=== PATIENT | female | born 1960 | race Caucasian/White ===

== ENCOUNTER 2017-12-09 08:45 | Outpatient (REF) | payer MEDICARE, SELFPAY ==
[2017-12-11 10:24] LABS: CA 125 17 U/mL (0-30)
== END 2017-12-09 09:05 ==
LOC: LBN 08:45
PROVIDERS: PCP Nurse Practitioner Family; Visit Provider Behavior Technician
DX: R19.00 Intra-abdominal and pelvic swelling, mass and lump, unspecified site (principal); D39.11 Neoplasm of uncertain behavior of right ovary
CPT/HCPCS: 86304

== ENCOUNTER 2017-12-14 10:16 | Outpatient (REF) | payer MEDICARE, SELFPAY ==
[2017-12-14 21:42] LABS: HCT 39.3 % (36.0-46.0); HGB 13.6 g/dL (12.0-15.5); Mean Corp. HGB Concentration 34.6 g/dL (32.0-36.0); Mean Corpuscular Hemoglobin 28.8 pg (27.0-33.0); Mean Corpuscular Volume 83.3 fL (80-95); Mean Platelet Volume 11.5 fL (8.0-11.0); Platelet Count 174 x1000/uL (130-400); RBC 4.72 m/cumm (4.00-5.20); RBC Distribution Width 15.1 % (11.7-14.6); White Blood Cell Count 6.07 k/cumm (4.4-10.8)
[2017-12-16 12:46] LABS: Source: Ureter
== END 2017-12-14 10:36 ==
LOC: NCHCN 10:16
PROVIDERS: PCP Nurse Practitioner Family; Visit Provider Nurse Practitioner Family
DX: D50.9 Iron deficiency anemia, unspecified (principal); N20.1 Calculus of ureter
CPT/HCPCS: 85027; 82360

== ENCOUNTER 2018-01-13 08:47 | Outpatient (REF) | payer MEDICARE, SELFPAY ==
[2018-01-15 14:31] LABS: CA 125 13 U/mL (0-30)
== END 2018-01-13 09:07 ==
LOC: LBN 08:47
PROVIDERS: PCP Nurse Practitioner Family; Visit Provider Behavior Technician
DX: R19.00 Intra-abdominal and pelvic swelling, mass and lump, unspecified site (principal)
CPT/HCPCS: 86304

== ENCOUNTER 2018-02-12 12:57 | Outpatient (REF) | payer MEDICARE, SELFPAY ==
[2018-02-12 22:13] LABS: HCT 43.5 % (36.0-46.0); HGB 14.5 g/dL (12.0-15.5); Mean Corp. HGB Concentration 33.3 g/dL (32.0-36.0); Mean Corpuscular Volume 89.9 fL (80-95); Mean Platelet Volume 11.5 fL (8.0-11.0); Platelet Count 205 x1000/uL (130-400); RBC 4.84 m/cumm (4.00-5.20); RBC Distribution Width 13.8 % (11.7-14.6); White Blood Cell Count 7.26 k/cumm (4.4-10.8)
[2018-02-15 10:45] LABS: CA 125 15 U/mL (0-30)
== END 2018-02-12 13:17 ==
LOC: LBN 12:57
PROVIDERS: Nurse Practitioner Family; PCP Nurse Practitioner Family; Visit Provider Obstetrics & Gynecology
DX: D39.12 Neoplasm of uncertain behavior of left ovary (principal); R97.1 Elevated cancer antigen 125 [CA 125]; D50.9 Iron deficiency anemia, unspecified
CPT/HCPCS: 85027; 86304

== ENCOUNTER 2018-03-15 08:21 | Outpatient (REF) | payer MEDICARE, SELFPAY ==
[2018-03-18 12:52] LABS: CA 125 15 U/mL (0-30)
== END 2018-03-15 08:41 ==
LOC: LBN 08:21
PROVIDERS: PCP Nurse Practitioner Family; Visit Provider Behavior Technician
DX: D39.11 Neoplasm of uncertain behavior of right ovary (principal); R19.00 Intra-abdominal and pelvic swelling, mass and lump, unspecified site
CPT/HCPCS: 86304

== ENCOUNTER 2018-06-14 07:56 | Outpatient (REF) | payer MEDICARE, SELFPAY ==
[2018-06-16 11:26] LABS: CA 125 13 U/mL (0-30)
== END 2018-06-14 08:16 ==
LOC: LBN 07:56
PROVIDERS: PCP Nurse Practitioner Family; Visit Provider Behavior Technician
DX: D39.11 Neoplasm of uncertain behavior of right ovary (principal); R19.00 Intra-abdominal and pelvic swelling, mass and lump, unspecified site
CPT/HCPCS: 86304

== ENCOUNTER 2018-07-14 08:07 | Outpatient (REF) | payer MEDICARE, SELFPAY ==
[2018-07-16 10:11] LABS: CA 125 12 U/mL (0-30)
== END 2018-07-14 08:27 ==
LOC: LBN 08:07
PROVIDERS: PCP Nurse Practitioner Family; Visit Provider Behavior Technician
DX: D39.11 Neoplasm of uncertain behavior of right ovary (principal); R19.00 Intra-abdominal and pelvic swelling, mass and lump, unspecified site
CPT/HCPCS: 86304

== ENCOUNTER 2018-08-13 10:33 | Outpatient (REF) | payer MEDICARE, SELFPAY ==
[2018-08-16 10:47] LABS: CA 125 16 U/mL (0-30)
== END 2018-08-13 10:53 ==
LOC: LBN 10:33
PROVIDERS: PCP Nurse Practitioner Family; Referring Provider Behavior Technician; Visit Provider Behavior Technician
DX: D39.11 Neoplasm of uncertain behavior of right ovary (principal); R19.00 Intra-abdominal and pelvic swelling, mass and lump, unspecified site
CPT/HCPCS: 86304

== ENCOUNTER 2018-09-10 07:53 | Outpatient (REF) | payer MEDICARE, SELFPAY ==
[2018-09-13 11:21] LABS: CA 125 19 U/mL (0-30)
== END 2018-09-10 08:13 ==
LOC: LBN 07:53
PROVIDERS: PCP Nurse Practitioner Family; Visit Provider Behavior Technician
DX: D39.11 Neoplasm of uncertain behavior of right ovary (principal); R19.00 Intra-abdominal and pelvic swelling, mass and lump, unspecified site
CPT/HCPCS: 86304

== ENCOUNTER 2018-10-07 09:42 | Outpatient (REF) | payer MEDICARE, SELFPAY ==
--- NOTE | 2018-10-07 09:00 | PAPFT_PTH ---
PATIENT: Donna Charles LOC: [facility] U#:[id number] AGE/SX: 57/F ROOM: RE10/07/[address]: Amanda Briseno : 1960 BED: DIS: 10/07/2018 SPEC #: [id number] RECD: 10/08/18 12:51 STATUS: AGUSTÍN RERic #: [id number] TRACEY: 10/07/18 09:[address]: Amanda Muñiz DEPT: [facility] Cytology RECD BY: Sharon Carrasquillo Tissues: 1 - CX/ENDOCX FOR PAP SMEARS Procedures: PAP THIN PREP/[facility] Screening HPV DNA PROBE Comments: [id number]
[2018-10-07 21:22] LABS: HCT 45.1 % (36.0-46.0); HGB 15.3 g/dL (12.0-15.5); Mean Corp. HGB Concentration 33.9 g/dL (32.0-36.0); Mean Corpuscular Hemoglobin 29.8 pg (27.0-33.0); Mean Corpuscular Volume 87.9 fL (80-95); Mean Platelet Volume 11.8 fL (8.0-11.0); Platelet Count 196 x1000/uL (130-400); RBC 5.13 m/cumm (4.00-5.20); White Blood Cell Count 8.96 k/cumm (4.4-10.8)
[2018-10-07 21:50] LABS: ALT 64 U/L (12-78); AST 26 U/L (15-37); Albumin 4.3 g/dL (3.4-5.0); Alkaline Phosphatase 73 U/L (46-116); Anion Gap 12.5 mmol/L (3-11); BUN 22 mg/dL (7-18); Bilirubin, Total 0.8 mg/dL (0.2-1.0); CO2 27.5 mmol/L (21.0-32.0); CREATININE 1.35 mg/dL (0.55-1.02); Calcium 9.2 mg/dL (8.5-10.1); Calculated LDL 133 mg/dL; Chloride 102 mmol/L (98-107); Cholesterol 191 mg/dL (50-200); Estimated GFR 40.28 (mL/min/1.73m2); Glucose 126 mg/dL (70-100); HDL Cholesterol 36 mg/dL (40-60); Magnesium 1.9 mg/dL (1.8-2.4); Potassium 3.5 mmol/L (3.5-5.1); Sodium 142 mmol/L (136-145); TSH 2.03 uIU/mL (0.36-3.74); Total Protein 8.3 g/dL (6.4-8.2); Triglyceride 110 mg/dL (30-150); Vitamin B12 554 pg/mL (193-986)
[2018-10-11 12:01] LABS: CA 125 17 U/mL (0-30)
== END 2018-10-07 10:02 ==
LOC: NCHCN 09:42
PROVIDERS: PCP Nurse Practitioner Family; Visit Provider Nurse Practitioner Family
DX: Z12.4 Encounter for screening for malignant neoplasm of cervix (principal); Z11.51 Encounter for screening for human papillomavirus (HPV); C56.9 Malignant neoplasm of unspecified ovary; D50.9 Iron deficiency anemia, unspecified; I10 Essential (primary) hypertension; M25.569 Pain in unspecified knee; N95.1 Menopausal and female climacteric states; F43.20 Adjustment disorder, unspecified
CPT/HCPCS: 80053; 80061; 83721; 85027; 86304; 88142; 82607; 83036; 83735; 84443; 87624

== ENCOUNTER 2019-01-12 08:54 | Outpatient (REF) | payer MEDICARE, SELFPAY ==
[2019-01-14 10:56] LABS: CA 125 16 U/mL (0-30)
== END 2019-01-12 09:14 ==
LOC: LBN 08:54
PROVIDERS: PCP Nurse Practitioner Family; Visit Provider Obstetrics & Gynecology
DX: D39.11 Neoplasm of uncertain behavior of right ovary (principal)
CPT/HCPCS: 86304

== ENCOUNTER 2019-02-09 08:40 | Outpatient (REF) | payer MEDICARE, SELFPAY ==
[2019-02-14 11:13] LABS: CA 125 15 U/mL (<30)
== END 2019-02-09 09:00 ==
LOC: LBN 08:40
PROVIDERS: PCP Nurse Practitioner Family; Visit Provider Obstetrics & Gynecology
DX: D39.11 Neoplasm of uncertain behavior of right ovary (principal)
CPT/HCPCS: 86304

== ENCOUNTER 2019-03-11 08:50 | Outpatient (REF) | payer MEDICARE, SELFPAY ==
[2019-03-14 11:08] LABS: CA 125 16 U/mL (<30)
== END 2019-03-11 09:10 ==
LOC: NCHCN 08:50
PROVIDERS: PCP Nurse Practitioner Family; Visit Provider Nurse Practitioner Family
DX: D39.11 Neoplasm of uncertain behavior of right ovary (principal); C56.9 Malignant neoplasm of unspecified ovary
CPT/HCPCS: 86304

== ENCOUNTER 2019-04-11 07:49 | Outpatient (REF) | payer MEDICARE, SELFPAY ==
[2019-04-13 11:06] LABS: CA 125 15 U/mL (<30)
== END 2019-04-11 08:09 ==
LOC: LBN 07:49
PROVIDERS: PCP Nurse Practitioner Family; Visit Provider Obstetrics & Gynecology
DX: D39.11 Neoplasm of uncertain behavior of right ovary (principal)
CPT/HCPCS: 86304

== ENCOUNTER 2019-07-13 08:18 | Outpatient (REF) | payer MEDICARE, SELFPAY ==
[2019-07-13 20:49] LABS: HCT 42.5 % (36.0-46.0); HGB 14.7 g/dL (12.0-15.5); Mean Corp. HGB Concentration 34.6 g/dL (32.0-36.0); Mean Corpuscular Hemoglobin 30.8 pg (27.0-33.0); Mean Corpuscular Volume 89.1 fL (80-95); Mean Platelet Volume 11.2 fL (8.0-11.0); Platelet Count 196 x1000/uL (130-400); RBC 4.77 m/cumm (4.00-5.20); RBC Distribution Width 13.3 % (11.7-14.6); White Blood Cell Count 6.53 k/cumm (4.4-10.8)
[2019-07-13 20:52] LABS: Anion Gap 7.2 mmol/L (3-11); BUN 20 mg/dL (7-18); CO2 29.8 mmol/L (21.0-32.0); CREATININE 1.46 mg/dL (0.55-1.02); Calcium 8.6 mg/dL (8.5-10.1); Chloride 103 mmol/L (98-107); Estimated GFR 36.67 (mL/min/1.73m2); Glucose 123 mg/dL (74-106); Potassium 3.7 mmol/L (3.5-5.1); Sodium 140 mmol/L (136-145)
[2019-07-13 20:59] LABS: Hemoglobin A1C 5.5 % (3.8-5.6)
[2019-07-15 11:05] LABS: CA 125 16 U/mL (<30)
== END 2019-07-13 08:38 ==
LOC: NCHCN 08:18
PROVIDERS: PCP Nurse Practitioner Family; Visit Provider Nurse Practitioner Family
DX: R73.03 Prediabetes (principal); N85.00 Endometrial hyperplasia, unspecified; D39.11 Neoplasm of uncertain behavior of right ovary; R97.1 Elevated cancer antigen 125 [CA 125]; I10 Essential (primary) hypertension
CPT/HCPCS: 80048; 85027; 86304; 83036

== ENCOUNTER 2019-08-12 12:40 | Outpatient (REF) | payer MEDICARE, SELFPAY ==
[2019-08-12 21:04] LABS: Anion Gap 7.4 mmol/L (3-11); BUN 20 mg/dL (7-18); CO2 28.6 mmol/L (21.0-32.0); CREATININE 1.41 mg/dL (0.55-1.02); Calcium 9.3 mg/dL (8.5-10.1); Chloride 103 mmol/L (98-107); Estimated GFR 38.17 (mL/min/1.73m2); Glucose 106 mg/dL (74-106); Potassium 3.7 mmol/L (3.5-5.1); Sodium 139 mmol/L (136-145)
[2019-08-15 11:11] LABS: CA 125 15 U/mL (<30)
== END 2019-08-12 13:00 ==
LOC: NCHCN 12:40
PROVIDERS: PCP Nurse Practitioner Family; Visit Provider Nurse Practitioner Family
DX: D39.11 Neoplasm of uncertain behavior of right ovary (principal); I10 Essential (primary) hypertension
CPT/HCPCS: 80048; 86304

== ENCOUNTER 2019-09-12 12:03 | Outpatient (REF) | payer MEDICARE, SELFPAY ==
[2019-09-12 21:31] LABS: Anion Gap 12.3 mmol/L (3-11); BUN 21 mg/dL (7-18); CO2 25.7 mmol/L (21.0-32.0); CREATININE 1.72 mg/dL (0.55-1.02); Calcium 9.3 mg/dL (8.5-10.1); Chloride 102 mmol/L (98-107); Estimated GFR 30.35 (mL/min/1.73m2); Glucose 109 mg/dL (74-106); Potassium 3.3 mmol/L (3.5-5.1); Sodium 140 mmol/L (136-145)
[2019-09-14 10:28] LABS: CA 125 18 U/mL (<30)
== END 2019-09-12 12:23 ==
LOC: NCHCN 12:03
PROVIDERS: PCP Nurse Practitioner Family; Visit Provider Nurse Practitioner Family
DX: R73.03 Prediabetes (principal); D39.11 Neoplasm of uncertain behavior of right ovary; I10 Essential (primary) hypertension
CPT/HCPCS: 80048; 86304; 84443

== ENCOUNTER 2019-10-03 09:19 | Outpatient (REF) | payer MEDICARE, SELFPAY ==
[2019-10-03 21:16] LABS: Anion Gap 9.8 mmol/L (3-11); BUN 13 mg/dL (7-18); CO2 24.2 mmol/L (21.0-32.0); CREATININE 1.35 mg/dL (0.55-1.02); Calcium 8.9 mg/dL (8.5-10.1); Chloride 106 mmol/L (98-107); Estimated GFR 40.14 (mL/min/1.73m2); Glucose 95 mg/dL (74-106); Sodium 140 mmol/L (136-145)
== END 2019-10-03 09:39 ==
LOC: NCHCN 09:19
PROVIDERS: PCP Nurse Practitioner Family; Visit Provider Nurse Practitioner Community Health
DX: I10 Essential (primary) hypertension (principal); E87.6 Hypokalemia
CPT/HCPCS: 80048

== ENCOUNTER 2019-10-12 08:19 | Outpatient (REF) | payer MEDICARE, SELFPAY ==
[2019-10-14 10:43] LABS: CA 125 19 U/mL (<30)
== END 2019-10-12 08:39 ==
LOC: NCHCN 08:19
PROVIDERS: PCP Nurse Practitioner Family; Visit Provider Obstetrics & Gynecology
DX: D39.11 Neoplasm of uncertain behavior of right ovary (principal)
CPT/HCPCS: 86304

== ENCOUNTER 2019-12-12 12:27 | Outpatient (REF) | payer MEDICARE, SELFPAY ==
[2019-12-14 10:39] LABS: CA 125 16 U/mL (<30)
== END 2019-12-12 12:47 ==
LOC: LBN 12:27
PROVIDERS: PCP Nurse Practitioner Family; Visit Provider Obstetrics & Gynecology
DX: D39.12 Neoplasm of uncertain behavior of left ovary (principal)
CPT/HCPCS: 86304

== ENCOUNTER 2020-02-06 08:43 | Outpatient (REF) | payer MEDICARE, SELFPAY ==
[2020-02-08 16:10] LABS: CA 125 17 U/mL (<30)
== END 2020-02-06 09:03 ==
LOC: NCHCN 08:43
PROVIDERS: PCP Nurse Practitioner Family; Visit Provider Nurse Practitioner Family
DX: R73.03 Prediabetes (principal); D39.11 Neoplasm of uncertain behavior of right ovary; I10 Essential (primary) hypertension; N18.30 Chronic kidney disease, stage 3 unspecified; F32.9 Major depressive disorder, single episode, unspecified
CPT/HCPCS: 86304; 83036

== ENCOUNTER 2020-03-19 08:37 | Outpatient (REF) | payer MEDICARE, SELFPAY ==
[2020-03-20 08:45] LABS: CA 125 16 U/mL (<30)
== END 2020-03-19 08:57 ==
LOC: LBN 08:37
PROVIDERS: PCP Nurse Practitioner Family; Visit Provider Obstetrics & Gynecology
DX: D39.12 Neoplasm of uncertain behavior of left ovary (principal)
CPT/HCPCS: 86304

== ENCOUNTER 2020-05-18 09:46 | Outpatient (REF) | payer MEDICARE, SELFPAY ==
[2020-05-21 11:08] LABS: CA 125 15 U/mL (<30)
== END 2020-05-18 09:47 | disposition home or self-care (01) ==
LOC: LBN 09:46
PROVIDERS: PCP Nurse Practitioner Family; Visit Provider Obstetrics & Gynecology
DX: D39.12 Neoplasm of uncertain behavior of left ovary (principal)
CPT/HCPCS: 86304

== ENCOUNTER 2020-07-20 17:27 | Outpatient (REF) | payer MEDICARE, SELFPAY ==
[2020-07-20 19:03] LABS: Hemoglobin A1C 5.1 % (<5.7)
[2020-07-23 10:36] LABS: CA 125 12 U/mL (<30)
== END 2020-07-20 17:28 | disposition home or self-care (01) ==
LOC: NCHCN 17:27
PROVIDERS: PCP Nurse Practitioner Family; Visit Provider Nurse Practitioner Family
DX: R73.03 Prediabetes (principal); D39.12 Neoplasm of uncertain behavior of left ovary
CPT/HCPCS: 86304; 83036

== ENCOUNTER 2020-09-21 08:29 | Outpatient (REF) | payer MEDICARE, SELFPAY ==
[2020-09-24 12:09] LABS: CA 125 9 U/mL (<30)
== END 2020-09-21 08:30 | disposition home or self-care (01) ==
LOC: LBN 08:29
PROVIDERS: PCP Nurse Practitioner Family; Visit Provider Obstetrics & Gynecology
DX: D39.12 Neoplasm of uncertain behavior of left ovary (principal)
CPT/HCPCS: 86304

== ENCOUNTER 2021-01-07 10:16 | Outpatient (REF) | payer MEDICARE, SELFPAY ==
[2021-01-07 15:08] LABS: HCT 45.5 % (36.0-46.0); HGB 14.9 g/dL (11.2-15.7); MCH 30.3 pg (27.0-33.0); MCHC 32.7 % (32.0-36.0); MCV 92.7 fL (80-95); MPV 10.6 fL (8.0-11.0); Platelet Count 191 10^3/uL (130-400); RBC 4.91 10^6/uL (3.93-5.22); RDW 12.9 % (11.7-14.6); RDW-SD 43.5 fL
[2021-01-07 15:33] LABS: Anion Gap 6.4 mmol/L (3-11); BUN 26 mg/dL (7-18); CO2 31.6 mmol/L (21.0-32.0); Calcium 9.1 mg/dL (8.5-10.1); Chloride 105 mmol/L (98-107); Estimated GFR 56.37 (mL/min/1.73m2); Ferritin 42 ng/mL (8-252); Glucose 109 mg/dL (74-106); Potassium 4.5 mmol/L (3.5-5.1); Sodium 143 mmol/L (136-145)
[2021-01-07 15:37] LABS: Hemoglobin A1C 5.1 % (<5.7)
[2021-01-07 16:49] LABS: COMMENT (LAB VIEW ONLY) 187.49 mg/dL; Microalb ug/mg Crea 10.5 ug/mg Cr
== END 2021-01-07 10:17 | disposition home or self-care (01) ==
LOC: NCHCN 10:16
PROVIDERS: PCP Nurse Practitioner Family; Visit Provider Nurse Practitioner Family
DX: I10 Essential (primary) hypertension (principal); N18.30 Chronic kidney disease, stage 3 unspecified; R73.03 Prediabetes; F32.9 Major depressive disorder, single episode, unspecified; Z86.2 Personal history of diseases of the blood and blood-forming organs and certain disorders involving the immune mechanism
CPT/HCPCS: 80048; 85027; 82043; 82570; 82728; 83036

== ENCOUNTER 2021-10-01 18:28 | Outpatient (REF) | payer MEDICARE, SELFPAY ==
[2021-10-01 15:26] LABS: HCT 39.9 % (36.0-46.0); MCH 31.3 pg (27.0-33.0); MCHC 35.1 % (32.0-36.0); MCV 89 fL (80-95); MPV 11.4 fL (8.0-11.0); Platelet Count 193 10^3/uL (130-400); RBC 4.47 10^6/uL (3.93-5.22); RDW 13.3 % (11.7-14.6); RDW-SD 43.5 fL; WBC 7.94 10^3/uL (4.4-10.8)
[2021-10-01 15:45] LABS: Anion Gap 10.6 mmol/L (3-11); BUN 21 mg/dL (7-18); CO2 30.4 mmol/L (21.0-32.0); CREATININE 1.4 mg/dL (0.55-1.02); Calcium 9.3 mg/dL (8.5-10.1); Chloride 103 mmol/L (98-107); Estimated GFR 38.23 (mL/min/1.73m2); Glucose 122 mg/dL (74-106); Potassium 3.7 mmol/L (3.5-5.1); Sodium 144 mmol/L (136-145); TSH 1.53 uIU/mL (0.36-3.74)
[2021-10-01 15:53] LABS: Hemoglobin A1C 5.4 % (<5.7)
== END 2021-10-01 18:29 | disposition home or self-care (01) ==
LOC: NCHCN 18:28
PROVIDERS: PCP Nurse Practitioner Family; Visit Provider Nurse Practitioner Family
DX: I10 Essential (primary) hypertension (principal); R73.03 Prediabetes; N18.30 Chronic kidney disease, stage 3 unspecified
CPT/HCPCS: 80048; 85027; 83036; 84443

== ENCOUNTER 2022-03-31 17:10 | Outpatient (REF) | payer MEDICARE, SELFPAY ==
[2022-03-31 17:58] LABS: HCT 41.6 % (36.0-46.0); MCH 29.9 pg (27.0-33.0); MCHC 33.7 % (32.0-36.0); MCV 89 fL (80-95); MPV 11.7 fL (8.0-11.0); Platelet Count 187 10^3/uL (130-400); RBC 4.68 10^6/uL (3.93-5.22); RDW 13.2 % (11.7-14.6); RDW-SD 42.4 fL; WBC 9.17 10^3/uL (4.4-10.8)
[2022-03-31 18:39] LABS: Anion Gap 9.9 mmol/L (3-11); BUN 25 mg/dL (7-18); CO2 30.1 mmol/L (21.0-32.0); CREATININE 1.6 mg/dL (0.55-1.02); Calculated LDL 130 mg/dL (<100); Chloride 104 mmol/L (98-107); Cholesterol 199 mg/dL (<200); Estimated GFR 36.24 (mL/min/1.73m2); Glucose 121 mg/dL (74-106); HDL Cholesterol 43 mg/dL (40-60); Potassium 4.5 mmol/L (3.5-5.1); Sodium 144 mmol/L (136-145); Triglyceride 134 mg/dL (<150)
[2022-04-01 19:02] LABS: Estimated Average Glucose 120 mg/dL; Hemoglobin A1C 5.8 % (<5.7)
[2022-04-02 10:01] LABS: CA 125 17 U/mL (<30)
== END 2022-03-31 17:11 | disposition home or self-care (01) ==
LOC: NCHCN 17:10
PROVIDERS: PCP Nurse Practitioner Family; Visit Provider Nurse Practitioner Family
DX: I10 Essential (primary) hypertension (principal); R73.03 Prediabetes; D39.12 Neoplasm of uncertain behavior of left ovary; N18.30 Chronic kidney disease, stage 3 unspecified; F32.9 Major depressive disorder, single episode, unspecified
CPT/HCPCS: 80048; 80061; 85027; 86304; 83036

== ENCOUNTER 2023-07-03 09:06 | Outpatient (REF) | payer MEDICARE, SELFPAY ==
[2023-07-03 15:41] LABS: HCT 37.9 % (36.0-46.0); HGB 11.5 g/dL (11.2-15.7); MCH 23.4 pg (27.0-33.0); MCHC 30.3 % (32.0-36.0); MCV 77 fL (80-95); Platelet Count 194 10^3/uL (130-400); RBC 4.92 10^6/uL (3.93-5.22); RDW 17.4 % (11.7-14.6); RDW-SD 48.6 fL
[2023-07-03 16:12] LABS: ALT 30 U/L (14-59); AST 24 U/L (15-37); Albumin 3.7 g/dL (3.4-5.0); Alkaline Phosphatase 80 U/L (46-116); Anion Gap 8.9 mmol/L (3-11); BUN 20 mg/dL (7-18); Bilirubin, Total 0.5 mg/dL (0.2-1.0); CO2 27.1 mmol/L (21.0-32.0); CREATININE 1.3 mg/dL (0.55-1.02); Calculated LDL 60 mg/dL (<100); Chloride 108 mmol/L (98-107); Cholesterol 121 mg/dL (<200); Estimated GFR 46.21 (mL/min/1.73m2); Glucose 110 mg/dL (74-106); HDL Cholesterol 46 mg/dL (40-60); Hemoglobin A1C 5.7 % (<5.7); Potassium 4.3 mmol/L (3.5-5.1); Sodium 144 mmol/L (136-145); Triglyceride 77 mg/dL (<150)
== END 2023-07-03 09:07 | disposition home or self-care (01) ==
LOC: NCHCN 09:06
PROVIDERS: PCP Nurse Practitioner Family; Visit Provider Nurse Practitioner Family
DX: I10 Essential (primary) hypertension (principal); E78.5 Hyperlipidemia, unspecified; R73.03 Prediabetes
CPT/HCPCS: 80053; 80061; 85027; 83036

== ENCOUNTER 2023-07-07 14:47 | Outpatient (REF) | payer MEDICARE, SELFPAY ==
[2023-07-08 09:19] LABS: Ferritin 9 ng/mL (8-252)
[2023-07-09 18:51] LABS: Iron 42 ug/dL (50-170); Total Iron Binding Capacity 441 ug/dL (250-450); Transferrin Sat 10 % (15-50)
== END 2023-07-07 14:48 | disposition home or self-care (01) ==
LOC: NCHCN 14:47
PROVIDERS: PCP Nurse Practitioner Family; Visit Provider Nurse Practitioner Family
DX: D50.9 Iron deficiency anemia, unspecified (principal)
CPT/HCPCS: 82728; 83540; 83550

== ENCOUNTER 2023-07-14 14:55 | Outpatient (REF) | payer MEDICARE, SELFPAY ==
[2023-07-15 18:57] LABS: CA 125 12 U/mL (<30)
== END 2023-07-14 14:56 | disposition home or self-care (01) ==
LOC: NCHCN 14:55
PROVIDERS: PCP Nurse Practitioner Family; Visit Provider Nurse Practitioner Family
DX: D39.12 Neoplasm of uncertain behavior of left ovary (principal)
CPT/HCPCS: 86304